=== PATIENT | female | born 1960 | race Caucasian/White ===

== ENCOUNTER → 2019-07-29 | Outpatient (CLI) | payer OTHER ==
[~2019-07-29] MED LIST: ALEVE220 MG PO; HYDROCODONE BIT1 T11 PO; IMODIUM2 MG PO; ZOFRAN ODT4 MG SL
== END | disposition home or self-care (01) ==
LOC: LAB 11:03 → RAD 11:03
DX: I10 Essential (primary) hypertension (principal); R94.31 Abnormal electrocardiogram [ECG] [EKG]